=== PATIENT | female | born 1965 | race Caucasian/White ===

== ENCOUNTER 2020-06-20 08:57 | Day surgery (SDC) | payer SELFPAY ==
[2020-06-14 14:31] VITALS: BMI 25.7
[2020-06-20] MEDS ORDERED: MIDAZOLAM HCL 2 MG/2 ML SINGLE DOSE VIAL ONE ×3 (10:16→11:56)
[2020-06-20] MEDS ORDERED: oxyCODONE HCL 5 MG TABLET PO PRN (10:53)
[2020-06-20] MEDS ORDERED: ONDANSETRON 4 MG/2 ML VIAL IVPUSH PRN (10:53)
[2020-06-20] MEDS ORDERED: LACTATED RINGERS SOLUTION 1,000 ML IV SCH (11:00)
[2020-06-20] MEDS ORDERED: ceFAZolin SODIUM 1 GM VIAL ONE (11:02)
[2020-06-20] MEDS ORDERED: GLYCOPYRROLATE 0.2 MG/1 ML VIAL ONE (11:16)
[2020-06-20] MEDS ORDERED: PROPOFOL 20 ML ONE ×3 (11:19→12:16)
[2020-06-20] MEDS ORDERED: ONDANSETRON 4 MG/2 ML VIAL ONE (11:27)
[2020-06-20] MEDS ORDERED: DEXAMETHASONE SOD PHOSPHATE 4 MG/1 ML VIAL ONE (11:27)
[2020-06-20] MEDS ORDERED: oxyCODONE HCL 5 MG TABLET ONE (13:41)
[2020-06-20 14:50] VITALS: TEMP 98.5
[2020-06-20 14:59] VITALS: BP 144/102; PULSE 90
[2020-06-20] MEDS ORDERED: BUPIVACAINE HCL/PF 0.5% (5MG/ML) 10 ML VIAL ONE (16:07)
[2020-06-20] MEDS ORDERED: POVIDONE-IODINE 5% OPHTHALMIC PREP 30 ML SOLUTION ONE (16:07)
[2020-06-20] MEDS ORDERED: ERYTHROMYCIN 0.5% OPHTHALMIC OINTMENT 3.5 GM TUBE ONE (16:07)
[2020-06-20] MEDS ORDERED: LIDOCAINE 1%/EPI 1:100000 (20 ML MULTI DOSE VIAL) ONE (16:07)
[2020-06-20] MEDS ORDERED: TETRACAINE 0.5% OPHTH SOLN 2 ML BOTTLE ONE (16:07)
--- NOTE | 2020-06-21 14:03 | OP ---
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 POSTOPERATIVE DIAGNOSIS: Dermatochalasis and nasal fat prominence bilateral upper lids. PROCEDURE: Blepharoplasty bilateral upper lids. SURGEON: Akila Omer MD ANESTHESIA: Local with sedation. COMPLICATIONS: None. ESTIMATED BLOOD LOSS; 2 to 3 mL OPERATIVE REPORT: Patient brought to the operating room and placed on the operating room table. Vital signs monitored by Anesthesia. Tetracaine was placed in both eyes. Timeout was performed and before intravenous sedation was administered, the lid creases were marked symmetrically on both upper lids in the patients [place] lid crease. The amount of skin that could be safely pinched and removed without causing lash eversion was marked and ellipses were marked in both upper lids. Intravenous sedation was administered and a subcutaneous injection of 2% Xylocaine with 1:100,000 epinephrine was then injected in both upper lids for a total of 2 mL across each eyelid and massaged for hemostasis. The patient was prepped and draped in the usual sterile fashion, exposing both eyes. The following procedures were performed bilaterally. Lid creases were incised symmetrically and the ellipses were incised completely in both eyelids, tapering upwards nasally and temporally. The skin was then removed with a Haakon Needle from both upper lids, leaving the orbicularis intact. Hemostasis was achieved with the Haakon Needle. Orbicularis and septum were then widely opened from nasal to temporal, exposing the nasal and central fat pads. The nasal fat pads were then exposed and released and fibrous tissue was dissected from the fat pads creating a fat pedicle which could be advanced to the center of the eyelid. The fat pads were then sutured to the underside of the orbicularis and septum in the center of the eyelid with 6-0 Vicryl suture Sculpting with cautery was applied if indicated. Attention was turned to the lateral portion of the eyelid. There was more brow droop on the left than the right. The orbicularis opened near the superior temporal orbital rim and the arcus marginalis was exposed 5-0 Vicryl suture was placed from the inferior orbicularis to the arcus marginalis to the superior orbicularis bilaterally. Hemostasis was obtained and then the wounds were then closed with interrupted and running 6-0 nylon suture with plastic technique. Any standing cutaneous deformities that were encountered were removed. Erythromycin ointment was placed on both eyes and the patient was awakened and taken to recovery room in stable condition without complication. AKILA OMER M.D. [id number] MTDD
== END 2020-06-20 14:40 | disposition home or self-care (01) ==
LOC: FASU 08:57
PROVIDERS: ATTEND Ophthalmology
PROC: 08SN0ZZ Reposition Right Upper Eyelid, Open Approach (ICD-10-PCS; 2020-06-20)
PROC: 08SP0ZZ Reposition Left Upper Eyelid, Open Approach (ICD-10-PCS; principal; 2020-06-20 11:21)
DX: H02.831 Dermatochalasis of right upper eyelid (principal); H02.834 Dermatochalasis of left upper eyelid
CPT/HCPCS: 94760